=== PATIENT | male | born 1955 | race Caucasian/White ===

== ENCOUNTER → 2016-10-02 | Outpatient (REF) | payer OTHER | LOC: M LABDRWAD 12:12 | PROVIDERS: ATTEND Physician Assistant Medical | DX: J02.9 Acute pharyngitis, unspecified (principal) ==

== ENCOUNTER → 2016-11-15 | Outpatient (REF) | payer OTHER ==
[2016-11-15 13:27] LABS: BASO # 0.1 K/mm3 (0.0-0.2); BASO % 0.9 % (0.0-1.0); EOS # 0.6 K/mm3 (0.0-0.50); LARGE UNSTAINED CELL # 0.2 K/mm3 (0.0-0.4); LARGE UNSTAINED CELL % 3.4 % (0.0-4.0); LYMPH # 1.5 K/mm3 (1.5-4.5); LYMPH % 18.9 % (24.0-44.0); MEAN CORPUSCULAR HEMOGLOBIN 32.4 pg (27.0-33.0); MEAN CORPUSCULAR HGB CONC 34.5 g/dl (32.0-36.5); MONO # 0.6 K/mm3 (0.0-0.8); MONO % 9.3 % (0.0-5.0); NEUTROPHILS # 3.9 K/mm3 (1.8-7.7); NEUTROPHILS % 58.5 % (36.0-66.0); PLATELET COUNT, AUTOMATED 312 k/mm3 (150-450); RED CELL DISTRIBUTION WIDTH 12.2 % (11.5-14.5); WHITE BLOOD COUNT 6.7 K/mm3 (4.0-10.0)
[2016-11-15 13:55] LABS: ALBUMIN/GLOBULIN RATIO 1.18 (1.00-1.93); ALKALINE PHOSPHATASE 66 U/L (45-117); ALT/SGPT 25 U/L (12-78); ANION GAP 8 MEQ/L (8-16); AST/SGOT 16 U/L (15-37); BILIRUBIN,TOTAL 1.1 MG/DL (0.2-1.0); BLOOD UREA NITROGEN 13 MG/DL (7-18); CARBON DIOXIDE LEVEL 28 MEQ/L (21-32); CHLORIDE LEVEL 106 MEQ/L (98-107); CHOLESTEROL LEVEL 177 MG/DL (<200); CREATININE FOR GFR 0.77 MG/DL (0.70-1.30); GLOMERULAR FILTRATION RATE > 60.0 (>49); GLUCOSE, FASTING 88 MG/DL (80-110); SODIUM LEVEL 142 MEQ/L (136-145); TOTAL PROTEIN 7.4 GM/DL (6.4-8.2); TRIGLYCERIDES LEVEL 103 MG/DL (<150)
== END ==
LOC: M SFHCADAM 08:12
PROVIDERS: ATTEND Family Medicine
DX: Z00.00 Encounter for general adult medical examination without abnormal findings (principal)

== ENCOUNTER → 2017-03-08 | Outpatient (CLI) | payer OTHER ==
--- NOTE | 2017-03-08 16:46 | REP ---
Clinical: Cervical Technique: AP, lateral, flexion/extension, bilateral oblique and open mouth views of the cervical spine. Findings: Advanced multilevel degenerative disc osteophyte complexes include osteophytosis, endplate sclerosis and disc space narrowing. Oblique views suggest neural foraminal narrowing. Open mouth view demonstrates normal C1-C2 articulation and odontoid process. No acute fracture / compression injury or subluxation. Prevertebral soft tissues are normal. Impression: Advanced multilevel degenerative disc osteophyte complexes. Findings most pronounced at the C4-5 and C5-6 levels. Signed by Chip Dempsey MD 03/08/2017 04:37 P
== END ==
LOC: M ADAMS 15:31
PROVIDERS: ATTEND Physician Assistant Medical
DX: M50.30 Other cervical disc degeneration, unspecified cervical region (principal)

== ENCOUNTER → 2017-09-27 | Outpatient (REF) | payer OTHER | LOC: M SFHCADAM 19:49 | DX: J02.9 Acute pharyngitis, unspecified (principal) ==

== ENCOUNTER → 2017-11-28 | Outpatient (REF) | payer OTHER ==
[2017-11-28 12:26] LABS: BASO # 0.1 10^3/uL (0.0-0.2); BASO % 0.9 % (0.0-1.0); EOS # 0.5 10^3/uL (0.0-0.50); EOS % 7.3 % (0.0-3.0); HEMATOCRIT 41.3 % (42.0-52.0); HEMOGLOBIN 14.7 g/dl (13.5-17.5); IMMATURE GRANULOCYTE % 0.6 % (0-3.0); LYMPH # 1.1 10^3/uL (1.5-4.5); LYMPH % 16.4 % (24.0-44.0); MEAN CORPUSCULAR HEMOGLOBIN 32.8 pg (27.0-33.0); MEAN CORPUSCULAR HGB CONC 35.6 g/dl (32.0-36.5); MEAN CORPUSCULAR VOLUME 92.2 fl (80.0-96.0); MONO # 0.7 10^3/uL (0.0-0.8); NEUTROPHILS # 4.3 10^3/uL (1.8-7.7); NEUTROPHILS % 63.8 % (36.0-66.0); PLATELET COUNT, AUTOMATED 290 10^3/uL (150-450); RED BLOOD COUNT 4.48 10^6/uL (4.30-6.10); RED CELL DISTRIBUTION WIDTH 11.8 % (11.5-14.5); WHITE BLOOD COUNT 6.7 10^3/uL (4.0-10.0)
[2017-11-28 13:24] LABS: ALBUMIN 3.7 GM/DL (3.2-5.2); ALBUMIN/GLOBULIN RATIO 1.09 (1.00-1.93); ALKALINE PHOSPHATASE 58 U/L (45-117); ALT/SGPT 25 U/L (12-78); ANION GAP 9 MEQ/L (8-16); AST/SGOT 16 U/L (7-37); BILIRUBIN,TOTAL 1.1 MG/DL (0.2-1.0); BLOOD UREA NITROGEN 7 MG/DL (7-18); CALCIUM LEVEL 8.6 MG/DL (8.8-10.2); CARBON DIOXIDE LEVEL 27 MEQ/L (21-32); CHLORIDE LEVEL 106 MEQ/L (98-107); CREATININE FOR GFR 0.67 MG/DL (0.70-1.30); GLOMERULAR FILTRATION RATE > 60.0 (>49); GLUCOSE, FASTING 92 MG/DL (70-100); POTASSIUM SERUM 4.4 MEQ/L (3.5-5.1); SODIUM LEVEL 142 MEQ/L (136-145); TOTAL PROTEIN 7.1 GM/DL (6.4-8.2)
== END ==
LOC: M SFHCADAM 08:01
DX: Z00.00 Encounter for general adult medical examination without abnormal findings (principal)

== ENCOUNTER 2018-08-09 19:12 | Emergency (ER) | payer OTHER ==
[~2018-08-09] VITALS: Ht 172.7 cm; Wt 84.1 kg
[2018-08-09 19:12] VITALS: BP 162/82
[2018-08-09] MEDS ORDERED: DOXY100C PO (19:36)
[2018-08-09] MEDS ORDERED: ONDA4TAB6 PO (19:36)
[2018-08-09] MEDS ORDERED: DOXYCYCLINE HYCLATE 100 MG TAB PO ONE (19:45)
== END 2018-08-09 19:45 | disposition home or self-care (01) ==
LOC: M ED 19:12
DX: S20.462A Insect bite (nonvenomous) of left back wall of thorax, initial encounter (principal); W57.XXXA Bitten or stung by nonvenomous insect and other nonvenomous arthropods, initial encounter; Y92.9 Unspecified place or not applicable; Y93.9 Activity, unspecified; Y99.9 Unspecified external cause status; Z88.2 Allergy status to sulfonamides; Z88.0 Allergy status to penicillin

== ENCOUNTER → 2019-01-26 | Outpatient (REF) | payer MEDICARE, OTHER ==
[~2019-01-26] MED LIST: DOXY100C PO; ONDA4TAB6 PO
== END ==
LOC: M SFHCADAM 07:56
PROVIDERS: ATTEND Family Medicine
DX: Z11.59 Encounter for screening for other viral diseases (principal)

== ENCOUNTER 2019-05-22 10:31 | Emergency (ER) | payer MEDICARE, OTHER ==
[~2019-05-22] VITALS: Ht 172.7 cm; Wt 85.8 kg
[2019-05-22] MEDS ORDERED: ACETAMINOPHEN 325 MG TAB PO ONE (12:45)
[2019-05-22] MEDS ORDERED: KETOROLAC 60 MG/2 ML VIAL (J1885) IM ONE (12:45)
--- NOTE | 2019-05-22 13:08 | REP ---
Left shoulder three views : There is no fracture or dislocation. Mineralization and joint spaces are normal. There are no calcifications or foreign bodies. Impression: Negative left shoulder . Electronically Signed by Isaias Santos MD 05/22/2019 01:00 P
[2019-05-22] MEDS ORDERED: KETO10TAB PO (14:16)
[2019-05-22] MEDS ORDERED: CYCL10TA PO (14:16)
[2019-05-22 14:28] VITALS: BP 144/83
== END 2019-05-22 14:29 | disposition home or self-care (01) ==
LOC: M ED 10:31
DX: S46.812A Strain of other muscles, fascia and tendons at shoulder and upper arm level, left arm, initial encounter (principal); S46.312A Strain of muscle, fascia and tendon of triceps, left arm, initial encounter; X58.XXXA Exposure to other specified factors, initial encounter; Z88.0 Allergy status to penicillin; Z88.2 Allergy status to sulfonamides
CPT/HCPCS: 73030; 96372; 99283; J1885

== ENCOUNTER 2020-01-01 15:45 | Emergency (ER) | payer MEDICARE, OTHER ==
[~2020-01-01] VITALS: Ht 170.2 cm; Wt 81.8 kg
[~2020-01-01 15:45] MED LIST changes: +CYCL-707 PO; +KETO10TAB PO
[2020-01-01] MEDS ORDERED: ASPIRIN 81 MG CHEW TABLET PO ONE (16:45)
[2020-01-01] MEDS ORDERED: GI COCKTAIL 50ML BTL(HYOSCYAMINE/MAALOX/LIDOCAINE VISCOUS)(1:3:1) PO ONE (16:45)
--- NOTE | 2020-01-01 17:13 | REPVR ---
PROCEDURE INFORMATION: Exam: XR Complete Acute Abdomen Series Exam date and time: 01/01/2020 4:58 PM Age: 64 years old Clinical indication: Pain; Other: Chest; Additional info: Chest pain TECHNIQUE: Imaging protocol: XR complete acute abdomen series, including 2 or more views of the abdomen and a single view chest. COMPARISON: No relevant prior studies available. FINDINGS: Tubes, catheters and devices: EKG leads are present overlying the chest. Lungs: The lungs are clear bilaterally. The pulmonary vasculature is normal. Pleural space: Normal. No pneumothorax. Heart/Mediastinum: The heart is normal in size and contour. Gastrointestinal tract: Normal. No bowel dilation. Intraperitoneal space: Normal. No free air. Vasculature: Mild aortic arch atherosclerotic calcification without ectasia. Left pelvic phleboliths. Bones/joints: No acute bony abnormality identified. L2-L3 and L4-L5 degenerative disc disease. Right lateral vertebral body marginal osteophytes are noted at multiple thoracic spinal levels. Soft tissues: Normal. IMPRESSION: 1. No acute cardiopulmonary abnormality identified. 2. No acute abdominal or pelvic abnormality identified. Electronically signed by: Jensen Fitzpatrick On 01/01/2020 17:13:46 PM
[2020-01-01 17:24] LABS: BASO # 0.1 10^3/uL (0.0-0.2); BASO % 0.7 % (0.0-1.0); EOS # 0.2 10^3/uL (0.0-0.5); EOS % 2.2 % (0.0-3.0); HEMATOCRIT 39.7 % (42.0-52.0); MEAN CORPUSCULAR HEMOGLOBIN 32.3 pg (27.0-33.0); MEAN CORPUSCULAR HGB CONC 35.3 g/dl (32.0-36.5); MEAN CORPUSCULAR VOLUME 91.5 fl (80.0-96.0); MONO # 0.8 10^3/uL (0.0-0.8); MONO % 9.3 % (0.0-5.0); NEUTROPHILS # 6.3 10^3/uL (1.5-8.5); PLATELET COUNT, AUTOMATED 259 10^3/uL (150-450); RED BLOOD COUNT 4.34 10^6/uL (4.30-6.10); WHITE BLOOD COUNT 8.5 10^3/uL (4.0-10.0)
[2020-01-01 17:37] LABS: INR 1.05
[2020-01-01 17:38] LABS: PARTIAL THROMBOPLASTIN TIME 30.4 SECONDS (25.0-38.4)
[2020-01-01 17:45] LABS: BLOOD UREA NITROGEN 9 MG/DL (7-18); GLUCOSE, FASTING 116 MG/DL (70-100)
[2020-01-01 17:46] LABS: CALCIUM LEVEL 9.2 MG/DL (8.8-10.2); CHLORIDE LEVEL 105 MEQ/L (98-107); CREATININE FOR GFR 0.75 MG/DL (0.70-1.30); GLOMERULAR FILTRATION RATE > 60.0 (>49); POTASSIUM SERUM 3.4 MEQ/L (3.5-5.1); SODIUM LEVEL 138 MEQ/L (136-145)
[2020-01-01 17:49] LABS: CK-MB VALUE MASS 2.3 NG/ML (<3.6); MB/CK RELATIVE INDEX 1.92 (< OR =4); TROPONIN I 0.35 NG/ML (< 0.10)
[2020-01-01 17:53] LABS: ALBUMIN 3.9 GM/DL (3.2-5.2); ALT/SGPT 25 U/L (12-78); BILIRUBIN,DIRECT 0.2 MG/DL (0.0-0.2); BILIRUBIN,TOTAL 0.8 MG/DL (0.2-1.0); CARBON DIOXIDE LEVEL 26 MEQ/L (21-32); LIPASE 93 U/L (73-393); TOTAL PROTEIN 7.6 GM/DL (6.4-8.2)
[2020-01-01 18:03] LABS: D-DIMER QUANT < 270.0 ng/ml (<500)
[2020-01-01 20:48] LABS: CK-MB VALUE MASS 2.1 NG/ML (<3.6); MB/CK RELATIVE INDEX 1.63 (< OR =4); TROPONIN I 0.39 NG/ML (< 0.10)
[2020-01-01 22:22] LABS: CK-MB VALUE MASS 2.6 NG/ML (<3.6); MB/CK RELATIVE INDEX 2.41 (< OR =4); TROPONIN I 0.4 NG/ML (< 0.10)
[2020-01-01 23:46] VITALS: BP 136/86
--- NOTE | 2020-01-05 19:54 | ECGEPIP ---
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
--- NOTE | 2020-01-06 21:37 | ECGEPIP ---
[facility] - ED Test Date: 2020-01-01 Pat Name: SUZAN TAMEZ Department: Room: - Gender: Male Chief Librarian Extension Department: BRITTANY : 1955 Requested By: Kristy Bruno Order Number: [id number] Reading MD: José Miguel Rowe Measurements Intervals [place] Rate: 68 P: 59 NM: 166 QRS: -26 QRSD: 89 T: 60 QT: 374 QTc: 398 Interpretive Statements SINUS RHYTHM POSSIBLE LEFT ATRIAL ENLARGEMENT BORDERLINE LEFT AXIS DEVIATION MODERATE ST DEPRESSION-CONSIDER ISCHEMIA NO PREVIOUS SEE SCANNED DOWNTIME REPORT
== END 2020-01-01 23:50 | disposition left against medical advice (07) ==
LOC: M ED 15:45
DX: R10.13 Epigastric pain (principal); R78.89 Finding of other specified substances, not normally found in blood; R06.02 Shortness of breath; R94.31 Abnormal electrocardiogram [ECG] [EKG]; Z53.21 Procedure and treatment not carried out due to patient leaving prior to being seen by health care provider; Z88.0 Allergy status to penicillin; Z88.2 Allergy status to sulfonamides; Z79.899 Other long term (current) drug therapy

== ENCOUNTER 2020-01-05 06:28 | Emergency (ER) | payer MEDICARE, OTHER ==
[~2020-01-05] VITALS: Ht 172.7 cm; Wt 80.9 kg
[~2020-01-05 06:28] MED LIST changes: -PROT1TAB2 PO
[2020-01-05 06:54] LABS: BASO # 0.1 10^3/uL (0.0-0.2); BASO % 0.8 % (0.0-1.0); EOS # 0.3 10^3/uL (0.0-0.5); EOS % 4.7 % (0.0-3.0); HEMATOCRIT 43.4 % (42.0-52.0); HEMOGLOBIN 15.2 g/dl (13.5-17.5); LYMPH # 1.3 10^3/uL (1.5-5.0); LYMPH % 18.7 % (24.0-44.0); MEAN CORPUSCULAR HEMOGLOBIN 31.8 pg (27.0-33.0); MEAN CORPUSCULAR VOLUME 90.8 fl (80.0-96.0); MONO # 0.8 10^3/uL (0.0-0.8); NEUTROPHILS # 4.6 10^3/uL (1.5-8.5); NEUTROPHILS % 63.7 % (36.0-66.0); PLATELET COUNT, AUTOMATED 288 10^3/uL (150-450); RED BLOOD COUNT 4.78 10^6/uL (4.30-6.10); WHITE BLOOD COUNT 7.2 10^3/uL (4.0-10.0)
[2020-01-05 07:04] LABS: INR 1.06
[2020-01-05 07:05] LABS: PARTIAL THROMBOPLASTIN TIME 30.8 SECONDS (25.0-38.4)
--- NOTE | 2020-01-05 07:49 | REPVR ---
PROCEDURE INFORMATION: Exam: XR Chest, 2 Views Exam date and time: 01/05/2020 7:24 AM Age: 64 years old Clinical indication: Chest pain; Radiating TECHNIQUE: Imaging protocol: XR of the chest Views: 2 views. COMPARISON: CR Abdomen,Flat Upright,PA CHEST 01/01/2020 4:39 PM FINDINGS: Lungs: Unremarkable. No consolidation. Pleural space: Unremarkable. No pleural effusion. No pneumothorax. Heart/Mediastinum: The cardiomediastinal silhouette is fairly stable in appearance. Bones/joints: Degenerative changes again involve the spine. IMPRESSION: No evidence for acute pulmonary disease. Electronically signed by: Prashanth Lainez On 01/05/2020 07:49:19 AM
[2020-01-05 08:17] LABS: CALCIUM LEVEL 9.1 MG/DL (8.8-10.2); CARBON DIOXIDE LEVEL 25 mmol/L (20-29); CHLORIDE LEVEL 105 MEQ/L (98-107); SODIUM LEVEL 139 MEQ/L (136-145)
[2020-01-05 08:18] LABS: ALT/SGPT 25 IU/L (0-32); BILIRUBIN,DIRECT 0.4 MG/DL (0.0-0.2); BILIRUBIN,TOTAL 1.8 MG/DL (0.2-1.0); CK-MB VALUE MASS 1.8 NG/ML (<3.6); CPK CREATINE PHOSPHOKINASE 202 U/L (39-308); MB/CK RELATIVE INDEX 0.89 (< OR =4); TOTAL PROTEIN 7.7 GM/DL (6.4-8.2)
[2020-01-05 08:19] LABS: BLOOD UREA NITROGEN 9 MG/DL (7-18); GLUCOSE, FASTING 101 MG/DL (70-100); LIPASE 79 U/L (73-393); TROPONIN I 0.15 NG/ML (< 0.10)
[2020-01-05 08:20] LABS: CREATININE FOR GFR 0.74 MG/DL (0.70-1.30); GLOMERULAR FILTRATION RATE > 60.0 (>49)
[2020-01-05] MEDS ORDERED: ISOVUE-370 76% 100ML VIAL As Ordered ONE (08:21)
[2020-01-05 08:43] LABS: CHOLESTEROL LEVEL 170 MG/DL (<200); HDL CHOLESTEROL 40 MG/DL (>40); LDL CHOLESTEROL 116.8 MG/DL (<100); NON-HDL-C 130 MG/DL; TRIGLYCERIDES LEVEL 66 MG/DL (<150)
--- NOTE | 2020-01-05 08:48 | REPVR ---
PROCEDURE INFORMATION: Exam: CT Abdomen And Pelvis With Contrast Exam date and time: 01/05/2020 8:36 AM Age: 64 years old Clinical indication: Abdominal pain; Epigastric; Additional info: Epigastric pain, pancreatitis TECHNIQUE: Imaging protocol: Computed tomography of the abdomen and pelvis with intravenous contrast. Radiation optimization: All CT scans at this facility use at least one of these dose optimization techniques: automated exposure control; mA and/or kV adjustment per patient size (includes targeted exams where dose is matched to clinical indication); or iterative reconstruction. Contrast material: ISOVUE 370; Contrast volume: 100 ml; Contrast route: INTRAVENOUS (IV); COMPARISON: CR Abdomen,Flat Upright,PA CHEST 01/01/2020 4:39 PM FINDINGS: Mediastinal space: There is a small hiatal hernia. Liver: The liver is fatty in density. It appears otherwise unremarkable. Gallbladder and bile ducts: No gallstones are evident, but ultrasound would be more sensitive. No gross biliary ductal dilatation. Pancreas: The pancreas appears unremarkable, and there is no significant peripancreatic inflammatory change. Spleen: Normal. No splenomegaly. Adrenals: Normal. No mass. Kidneys and ureters: The right kidney contains a 2.5 cm cyst, not requiring follow-up. It appears otherwise unremarkable. The left kidney appears unremarkable. Stomach and bowel: The unopacified small bowel is not significantly distended to suggest obstruction. The large bowel is grossly unremarkable in appearance. Appendix: The appendix appears normal. Intraperitoneal space: No free air or significant free fluid. Vasculature: The abdominal aorta is nonaneurysmal. Atherosclerotic vascular calcifications are noted. Lymph nodes: Unremarkable. No enlarged lymph nodes. Bladder: Grossly unremarkable. Reproductive: The prostate is large, measuring 4.9 x 3.9 cm, and contains coarse calcifications. Bones/joints: Degenerative changes involve the spine, sacroiliac joints and hips. Soft tissues: There are small right and moderate left fat containing inguinal hernias. IMPRESSION: 1. Unremarkable appearance of the pancreas without surrounding inflammatory change. The CT findings of pancreatitis may lag close clinically. 2. Small hiatal hernia. 3. Small right and moderate left fat containing inguinal hernias. 4. Large prostate containing coarse calcifications. COMMENTS: Dedicated chest CT has been performed, and findings above the diaphragm will be reported separately. Electronically signed by: Prashanth Lainez On 01/05/2020 08:48:44 AM
--- NOTE | 2020-01-05 09:00 | REPVR ---
PROCEDURE INFORMATION: Exam: CT Angiography Chest With Contrast Exam date and time: 01/05/2020 8:36 AM Age: 64 years old Clinical indication: Chest pain; Additional info: Chest pain, dyspnea on exertion TECHNIQUE: Imaging protocol: Computed tomographic angiography of the chest with intravenous contrast. 3D rendering (Not supervised by radiologist): MIP and/or 3D reconstructed images were created by the technologist. Radiation optimization: All CT scans at this facility use at least one of these dose optimization techniques: automated exposure control; mA and/or kV adjustment per patient size (includes targeted exams where dose is matched to clinical indication); or iterative reconstruction. Contrast material: ISOVUE 370; Contrast volume: 100 ml; Contrast route: INTRAVENOUS (IV); COMPARISON: CR Chest, 2 view PA, Lat 01/05/2020 7:11 AM FINDINGS: Pulmonary arteries: No pulmonary embolus is identified. Aorta: The thoracic aorta is nonaneurysmal and without evidence for dissection. Atherosclerotic vascular calcifications are noted. Lungs: Minor dependent atelectasis is present bilaterally. There is a 3 mm subpleural nodule in the right upper lobe posteriorly (image [id number]). Another 3 mm nodule is present in the left lower lobe (image [id number]). A small calcified granuloma is present in the right middle lobe. Pleural space: Unremarkable. No pneumothorax. No pleural effusion. Heart: Coronary artery calcifications are noted. No significant pericardial effusion. Lymph nodes: Unremarkable. No enlarged lymph nodes. Bones/joints: Degenerative changes involve the spine and shoulders. Soft tissues: Unremarkable. IMPRESSION: 1. No pulmonary embolus or other acute thoracic disease identified. 2. Coronary artery calcifications. 3. Pulmonary nodules measuring up to 3 mm. For patients at low risk (minimal or absent history of smoking and of other known risk factors), no routine follow-up is indicated. For patients at high risk (history of smoking or of other known risk factors), consider optional CT at 12 months. (Teofilo et al., Fleischner Society, 2017) COMMENTS: See separate abdominal CT report for findings below the diaphragm. Electronically signed by: Prashanth Lainez On 01/05/2020 09:00:16 AM
[2020-01-05] MEDS ORDERED: PROT1TAB2 PO (09:29)
[2020-01-05 09:50] VITALS: BP 148/72
--- NOTE | 2020-01-08 09:17 | ED PDOC ---
Post-Departure Follow-Up radiology report faxed to Kristy Arnold MD Jan 08, 2020 09:16
--- NOTE | 2020-01-09 09:46 | ECGEPIP ---
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
== END 2020-01-05 09:50 | disposition home or self-care (01) ==
LOC: M ED 06:28
DX: R91.1 Solitary pulmonary nodule (principal); N28.1 Cyst of kidney, acquired; K44.9 Diaphragmatic hernia without obstruction or gangrene; R79.89 Other specified abnormal findings of blood chemistry; R94.31 Abnormal electrocardiogram [ECG] [EKG]; R10.13 Epigastric pain; E78.5 Hyperlipidemia, unspecified; F41.9 Anxiety disorder, unspecified; Z79.899 Other long term (current) drug therapy; Z88.0 Allergy status to penicillin; Z88.1 Allergy status to other antibiotic agents; Z88.2 Allergy status to sulfonamides
CPT/HCPCS: 36415; 71046; 71275; 74177; 80047; 80053; 80061; 82550; 82553; 83690; 83880; 84439; 84443; 84484; 85025; 85610; 85730; 93005; 93041; 94760; 99285; Q9967

== ENCOUNTER → 2020-01-05 | Outpatient (REF) | payer MEDICARE, OTHER ==
[~2020-01-05] MED LIST changes: +PROT1TAB2 PO
[2020-01-05 14:13] LABS: ALBUMIN 4.1 GM/DL (3.2-5.2); ALT/SGPT 24 U/L (12-78); BILIRUBIN,TOTAL 1.5 MG/DL (0.2-1.0); BLOOD UREA NITROGEN 9 MG/DL (7-18); CALCIUM LEVEL 9.2 MG/DL (8.8-10.2); CARBON DIOXIDE LEVEL 27 MEQ/L (21-32); CHLORIDE LEVEL 104 MEQ/L (98-107); CHOLESTEROL LEVEL 171 MG/DL (<200); CHOLESTEROL RISK RATIO 3.976 (<5); CPK CREATINE PHOSPHOKINASE 178 U/L (39-308); CREATININE FOR GFR 0.71 MG/DL (0.70-1.30); GLOMERULAR FILTRATION RATE > 60.0 (>49); GLUCOSE, FASTING 89 MG/DL (70-100); HDL CHOLESTEROL 43 MG/DL (>40); LDL CHOLESTEROL 118 MG/DL (<100); MB/CK RELATIVE INDEX 1.12 (< OR =4); NON-HDL-C 128 MG/DL; NT-PRO BNP 158 PG/ML (<125); POTASSIUM SERUM 4.4 MEQ/L (3.5-5.1); SODIUM LEVEL 136 MEQ/L (136-145); TOTAL PROTEIN 7.9 GM/DL (6.4-8.2); TRIGLYCERIDES LEVEL 52 MG/DL (<150); TROPONIN I 0.15 NG/ML (< 0.10)
== END ==
LOC: M SFHCADAM 13:15
PROVIDERS: ATTEND Family Medicine
DX: R79.89 Other specified abnormal findings of blood chemistry (principal); R94.31 Abnormal electrocardiogram [ECG] [EKG]; R10.13 Epigastric pain; E78.5 Hyperlipidemia, unspecified